=== PATIENT | male | born 1965 | race Caucasian/White ===

== ENCOUNTER 2018-10-30 11:59 | Emergency (ER) | payer OTHER ==
[~2018-10-30] VITALS: Ht 165.1 cm; Wt 68.0 kg
[2018-10-30] MEDS ORDERED: NKM (12:21)
--- NOTE | 2018-10-30 12:27 | NUR ---
ED Nurse Note: PT WALKED IN TO ER TODAY FROM HOME. AOX4. PT C/O RIGHT SIDED EAR PRESSURE ALONG WITH DECREASED HEARING AND NUMBNESS SURROUNDING RIGHT EAR X 1 MONTH AGO. PT DENIES ANY DISCHARGE OR BLEEDING FROM EAR. PT DENIES DIZZINESS AND GAIT STEADY.
[2018-10-30 12:28] VITALS: BP 114/76
--- NOTE | 2018-10-30 12:40 | NUR ---
ED Nurse Note: EMT AT BEDSIDE FOR EAR IRRIGATION
[2018-10-30] MEDS ORDERED: AMOXICILLIN500 MG ORAL (13:22)
[2018-10-30 13:26] VITALS: BP 116/80
--- NOTE | 2018-10-30 13:26 | NUR ---
ED Nurse Note: PT SITTING PEACEFULLY IN BED IN NAD. AOX4. PRESCRIPTIONS AND DISCHARGE PAPERWORK EXPLAINED TO PT. PT VERBALIZES UNDERSTANDING AND ALL QUESTIONS ANSWERED. PRESCRIPTIONS AND DISCHARGE PAPERWORK GIVEN TO PT AND ID WRISTBAND REMOVED. PT WALKED OUT OF ER WITH STEADY GAIT AND ALL BELONGINGS.
--- NOTE | 2018-10-30 15:54 | Emergency Room Report ---
History of Present Illness General Chief Complaint: Earache Source: Patient Present Illness HPI Patient presents emergency department today complaining of bilateral earache. He states that his right ear hurts well his left. He does have a history of cerumen impaction. States that he's been using drops but he doesn't feel like working. States that his years feel plugged up. He denies any nasal congestion and fever chest pain shortness of breath. Symptoms noted to be moderate to severe.No other modifying factors. No other associated signs and symptoms. No other complaints were noted. Allergies: Coded Allergies: No Known Allergies (Unverified , 10/30/18) Patient History Past Medical History: none Past Surgical History: none Pertinent Family History: none Social History: Denies: smoking, alcohol use, drug use Reviewed Nursing Documentation: PMH: Agreed; PSxH: Agreed Nursing Documentation-PMH Past Medical History: No Stated History Review of Systems All Other Systems: negative except mentioned in HPI Physical Exam Vital Signs Date Time Temp Pulse Resp B/P (MAP) Pulse Ox O2 Delivery O2 Flow Rate FiO2 10/30/18 12:19 97.9 64 19 118/77 100 Room Air Sp02 EP Interpretation: reviewed, normal General Appearance: normal inspection, well appearing, no apparent distress, alert Head: atraumatic Eyes: bilateral eye normal inspection ENT: hearing grossly normal, normal voice, other - Cerumen impaction, right tympanic membrane inflamed Neck: normal inspection, full range of motion, supple, no bony tend Respiratory: normal inspection, lungs clear, normal breath sounds, no respiratory distress, no retraction, no wheezing Cardiovascular #1: regular rate, rhythm, no edema Gastrointestinal: normal inspection, normal bowel sounds, non tender, soft, no guarding, no hernia Genitourinary: no CVA tenderness Musculoskeletal: normal inspection, back normal, normal range of motion Neurologic: normal inspection, alert, responsive, speech normal Psychiatric: normal inspection, judgement/insight normal, mood/affect normal Skin: normal inspection, normal color, no rash Medical Decision Making Diagnostic Impression: Primary Impression: Otitis media Additional Impression: Cerumen impaction ER Course Patient presents emergency department today complaining of right earache. Differential considerations include cerumen impaction, otitis media, otitis externa. Patient's exam is consistent with cerumen impaction. Therefore patient's ears were irrigated with water. After the cerumen is removed I reexamined patient's year there appeared to be evidence of otitis media on the right ear. The tympanic membrane was inflamed. Therefore felt the patient benefit from antibiotics. Patient was given prescription for amoxicillin.Patient is advised to follow up with primary doctor in 2-3 days and return the emergency room for any worsening symptoms and as needed. Last Vital Signs Date Time Temp Pulse Resp B/P (MAP) Pulse Ox O2 Delivery O2 Flow Rate FiO2 10/30/18 13:26 98.3 70 17 116/80 99 Room Air Status: improved Disposition: HOME, SELF-CARE Condition: Stable Scripts Amoxicillin* (AMOXIL*) 500 Mg Capsule 500 MG ORAL THREE TIMES A DAY, #30 CAP Prov: Sotero Allan MD 10/30/18 Referrals: Nereyda SKINNER,REFERRING (PCP) Patient Instructions: Cerumen Impaction, Otitis Media, Adult Sotero Allan MD Oct 30, 2018 15:53
== END 2018-10-30 13:27 | disposition home or self-care (01) ==
LOC: EMR 13:00
DX: H66.90 Otitis media, unspecified, unspecified ear (principal); H61.20 Impacted cerumen, unspecified ear
CPT/HCPCS: 99282